=== PATIENT | female | born 2000 | race African-American/Black ===

== ENCOUNTER 2022-01-11 16:28 | Emergency (ER) | payer BC, OTHER, SELFPAY | END 2022-01-11 17:47 | disposition home or self-care (01) | LOC: ERS 16:28 | DX: L73.2 Hidradenitis suppurativa (principal); F17.210 Nicotine dependence, cigarettes, uncomplicated | CPT/HCPCS: 99283 ==

== ENCOUNTER 2022-10-19 15:22 | Emergency (ER) | payer OTHER, SELFPAY | END 2022-10-19 17:00 | disposition home or self-care (01) | LOC: ERS 15:22 | DX: L73.2 Hidradenitis suppurativa (principal); F17.210 Nicotine dependence, cigarettes, uncomplicated | CPT/HCPCS: 99282 ==

== ENCOUNTER 2022-11-03 16:08 | Outpatient (CLI) | payer BC, SELFPAY ==
[2022-11-03 17:16] LABS: BHCG - Serum Negative (NEGATIVE); Pregs Control Background? CLEAR/WHITE (CLR/WHITE); Pregs Control Bar Appear? YES (CONTROL BAR)
[2022-11-03 17:17] LABS: #Basophils 0.1 10x3/uL (0.0-0.2); #Eosinphils 0.8 10x3/uL (0.0-0.5); #Monocytes 1.1 10x3/uL (0.0-1.1); #Neutrophils 6.7 10x3/uL (1.5-8.4); %Basophils 0.7 % (0.0-2.0); %Eosinophils 5.8 % (0.0-6.0); %Lymphocytes 33.4 % (18.0-47.0); %Monocytes 8.2 % (0.0-10.0); %Neutrophils 51.6 % (40.0-75.0); Mean Corpuscular HGB CONC 33.1 g/dL (32.0-36.0); Mean Corpuscular Hemoglobin 27.1 pg (27.0-33.0); Mean Corpuscular Volume 81.9 fl (81.6-98.3); Mean Platelet Volume 11.5 fl (7.4-10.4); Platelet Count 445 10x3/uL (150-450); RBC Distribution Width 15.1 % (11.5-14.5)
== END 2022-11-03 16:09 | disposition home or self-care (01) ==
LOC: LABBT 16:08
PROVIDERS: ATTEND Surgery
DX: Z01.812 Encounter for preprocedural laboratory examination (principal); L73.2 Hidradenitis suppurativa
CPT/HCPCS: 84703; 85025

== ENCOUNTER 2022-11-14 05:58 | Day surgery (SDC) | payer OTHER ==
[2022-11-11 10:26] VITALS: BMI 25.8
[2022-11-14] MEDS ORDERED: Lidocaine 1% MPF 2 ML VIAL ONE (07:39)
[2022-11-14] MEDS ORDERED: Bupivacaine HCl 0.5%/Epinephrine 1:200,000/PF 30 ml Vial ONE (08:27)
[2022-11-14] MEDS ORDERED: fentaNYL PF 100 MCG/2 ML SYRINGE ONE (09:04)
[2022-11-14] MEDS ORDERED: Levofloxacin 500 mg/D5W 100 ml Premix Bag ONE (09:06)
[2022-11-14] MEDS ORDERED: Midazolam HCl 2 mg/2 ml Vial ONE (09:08)
[2022-11-14] MEDS ORDERED: Lidocaine 1% PF 5 ML VIAL ONE (09:15)
[2022-11-14] MEDS ORDERED: Ketorolac Tromethamine 30 MG/ML VIAL ONE (09:15)
[2022-11-14] MEDS ORDERED: PROPOFOL 200 MG/20 ML VIAL ONE (09:15)
[2022-11-14] MEDS ORDERED: Dexamethasone 20 MG/5 ML VIAL ONE (09:15)
[2022-11-14] MEDS ORDERED: Ondansetron PF 4 MG/2 ML Vial ONE (09:15)
[2022-11-14] MEDS ORDERED: fentaNYL 50 mcg/mL 1 mL Vial ONE (10:34)
[2022-11-14] MEDS ORDERED: HYDROcodone/Acetaminophen 5/325 mg Tablet ONE (11:57)
== END 2022-11-14 12:47 | disposition home or self-care (01) ==
LOC: SDC 05:58
PROVIDERS: ATTEND Surgery
PROC: 0JBD0ZZ Excision of Right Upper Arm Subcutaneous Tissue and Fascia, Open Approach (ICD-10-PCS; principal; 2022-11-14)
DX: L73.2 Hidradenitis suppurativa (principal); I10 Essential (primary) hypertension; F17.200 Nicotine dependence, unspecified, uncomplicated; Z88.0 Allergy status to penicillin; Z91.018 Allergy to other foods; Z79.2 Long term (current) use of antibiotics
CPT/HCPCS: J1100; J1885; J1956; J2250; J2405; J2704; J3010

== ENCOUNTER 2023-11-17 10:22 | Day surgery (SDC) | payer OTHER ==
[2023-11-16 11:27] VITALS: BMI 25.8
[2023-11-17 12:30] LABS: #Basophils 0.06 10x3/uL (0.0-0.2); %Basophils 0.4 % (0.0-1.0); %Eosinophils 0.9 % (0.0-10.0); %Lymphocytes 6.1 % (21.0-51.0); %Neutrophils 83.3 % (42.0-75.0); Hematocrit 41.1 % (36.0-47.0); Hemoglobin 13.7 g/dL (12.0-16.0); Mean Corpuscular HGB CONC 33.3 g/dL (32.0-36.0); Mean Corpuscular Hemoglobin 26.4 pg (27.0-31.0); Mean Corpuscular Volume 79.2 fl (78.0-98.0); Mean Platelet Volume 10.6 fL (7.4-10.4); Platelet Count 312 10x3/uL (130-400); RBC Distribution Width 16.1 % (11.5-14.5); Red Blood Cell (RBC) Count 5.19 mill/uL (4.20-5.40)
[2023-11-17] MEDS ORDERED: fentaNYL 50 mcg/mL 1 mL Vial ONE ×3 (12:52→15:08)
[2023-11-17] MEDS ORDERED: Famotidine/PF 20 mg/2ml Vial ONE (13:32)
[2023-11-17] MEDS ORDERED: PROPOFOL 20 ML ONE (13:34)
[2023-11-17] MEDS ORDERED: Lidocaine 2% PF 5 ML VIAL ONE (13:35)
[2023-11-17] MEDS ORDERED: LevoFLOXacin D5W 500 mg (100 mL) BAG ONE (13:46)
[2023-11-17] MEDS ORDERED: Rocuronium Bromide 10 MG/ML (10ML VIAL) ONE (13:56)
[2023-11-17] MEDS ORDERED: Metoclopramide HCl 10 MG (2 mL) VIAL ONE (14:15)
[2023-11-17] MEDS ORDERED: Ondansetron PF 4 MG/2 ML Vial ONE (14:15)
[2023-11-17] MEDS ORDERED: Dexamethasone 4 mg/ml Vial ONE (14:15)
[2023-11-17] MEDS ORDERED: Ketorolac Tromethamine 30 MG (1 mL) VIAL ONE (14:15)
[2023-11-17] MEDS ORDERED: SUGAMMADEX SODIUM 200 MG/2 ML VIAL ONE (14:15)
[2023-11-17] MEDS ORDERED: HYDROcodone/Acetaminophen 5/325 mg Tablet ONE (16:06)
== END 2023-11-17 16:40 | disposition home or self-care (01) ==
LOC: SDC 10:22
PROVIDERS: ATTEND Surgery
PROC: 0H98XZZ Drainage of Buttock Skin, External Approach (ICD-10-PCS; principal; 2023-11-17)
DX: L05.01 Pilonidal cyst with abscess (principal); J45.909 Unspecified asthma, uncomplicated; I10 Essential (primary) hypertension; F17.200 Nicotine dependence, unspecified, uncomplicated; F41.9 Anxiety disorder, unspecified; Z88.0 Allergy status to penicillin; Z79.2 Long term (current) use of antibiotics; Z79.899 Other long term (current) drug therapy; Z91.018 Allergy to other foods
CPT/HCPCS: 85025; 87070; 87205; J1100; J1885; J1956; J2001; J2405; J2704; J2765; J3010; S0028